=== PATIENT | female | born 1950 | race Hispanic/Latino ===

== ENCOUNTER → 2018-11-04 | Outpatient (CLI) | payer MEDICARE ==
[~2018-11-04] VITALS: Ht 157.5 cm; Wt 80.7 kg
[~2018-11-04] MED LIST: REGADENOSON 0.4 MG/5 ML PF SYG IVP SCH
== END | disposition home or self-care (01) ==
LOC: SHCH 08:07
PROVIDERS: ATTEND Internal Medicine Cardiovascular Disease
DX: I25.89 Other forms of chronic ischemic heart disease (principal); R07.9 Chest pain, unspecified; R06.09 Other forms of dyspnea
CPT/HCPCS: 78452; 93017; 96374; A9500 ×2; J2785

== ENCOUNTER 2020-12-27 06:02 | Day surgery (SDC) | payer MEDICARE ==
[2020-12-25 13:21] VITALS: BP 126/47
[2020-12-25 13:27] LABS: BASOPHILS % (AUTO) 0.8 % (0.0-5.0); EOSINOPHILS % (AUTO) 1.5 % (0.0-8.0); HEMATOCRIT 30.3 % (36-48); LYMPHOCYTES % (AUTO) 13.6 % (21.0-51.0); MEAN CORPUSCULAR HEMOGLOBIN 31.7 pg (27.0-33.0); MEAN CORPUSCULAR HGB CONC 32.3 g/dL (32.0-36.0); MEAN CORPUSCULAR VOLUME 98.1 fL (79-99); MONOCYTES % (AUTO) 8.2 % (3.0-13.0); NEUTROPHILS % (AUTO) 75.1 % (40.0-77.0); PLATELET COUNT (AUTO) 253 K/uL (130-400); RED BLOOD CELL COUNT(AUTO) 3.09 MIL/uL (4.00-5.50); RED CELL DISTRIBUTION WIDTH 15.3 % (11.0-15.5); WHITE BLOOD COUNT (AUTO) 8.5 K/uL (4.8-10.8)
[2020-12-25 13:39] LABS: INR 1.05 (0.85-1.15); PROTHROMBIN TIME 11.4 SEC (9.6-11.6)
[2020-12-25 13:40] LABS: PARTIAL THROMBOPLASTIN TIME 29.3 SEC (26.3-35.5)
[~2020-12-27] VITALS: Ht 157.5 cm; Wt 71.4 kg
[2020-12-27] VITALS (11 sets, daily range): BP systolic 129–166; BP diastolic 41–79
[~2020-12-27 06:02] MED LIST changes: +AMLO-258 PO; +ASPI-1443 PO; +ATOR10TA69 PO; +CALC667T8 PO; +CARV25TA PO; +CLOP75TA32 PO; +FOLI1TAB85 PO; +HYDR100T27 PO; +INSNOV SQ; +INSU100I24 SQ; +ISOS30TA92 PO; +LOSA100T58 PO; +PANT40TA54 PO; +RANO500T6 PO; -REGADENOSON 0.4 MG/5 ML PF SYG IVP SCH; +TRAZ-185 PO; +VITA400C79 PO; +VITAMIN D PO
[2020-12-27] MEDS ORDERED: 0.9%NACL 1000ML 1,000 ML IV ONE (06:13)
[2020-12-27 06:48] LABS: BASOPHILS % (AUTO) 0.8 % (0.0-5.0); EOSINOPHILS % (AUTO) 2.2 % (0.0-8.0); LYMPHOCYTES % (AUTO) 16.8 % (21.0-51.0); MEAN CORPUSCULAR HEMOGLOBIN 32.1 pg (27.0-33.0); MEAN CORPUSCULAR HGB CONC 32.8 g/dL (32.0-36.0); MONOCYTES % (AUTO) 9.5 % (3.0-13.0); NEUTROPHILS % (AUTO) 70.4 % (40.0-77.0); PLATELET COUNT (AUTO) 187 K/uL (130-400); RED BLOOD CELL COUNT(AUTO) 2.96 MIL/uL (4.00-5.50); RED CELL DISTRIBUTION WIDTH 15.1 % (11.0-15.5); WHITE BLOOD COUNT (AUTO) 6.4 K/uL (4.8-10.8)
[2020-12-27 07:15] LABS: INR 1.05 (0.85-1.15); PROTHROMBIN TIME 11.4 SEC (9.6-11.6)
[2020-12-27 07:16] LABS: PARTIAL THROMBOPLASTIN TIME 29.6 SEC (26.3-35.5)
[2020-12-27] MEDS ORDERED: IOHEXOL-350 50ML VIAL IV ONE (07:21)
[2020-12-27] MEDS ORDERED: NITROGLYCERIN 50MG VIAL IV ONE (07:21)
[2020-12-27] MEDS ORDERED: LIDOCAINE HCL 400MG/20ML VIAL ONE (07:21)
[2020-12-27] MEDS ORDERED: IOHEXOL 350 MG/ML 100ML INFUS..BTL IV ONE (07:21)
[2020-12-27] MEDS ORDERED: IOHEXOL-350 75 ML VIAL IV ONE (08:06)
[2020-12-27] MEDS ORDERED: LABETALOL 20MG VIAL IV ONE (08:22)
[2020-12-27] MEDS ORDERED: HYDRALAZINE 20MG/ML VIAL ONE (08:28)
[2020-12-27] MEDS ORDERED: METOPROLOL TARTRATE 1 MG/ML 5ML VIAL IV PRN (09:00)
[2020-12-27] MEDS ORDERED: HYDRALAZINE 20MG/ML VIAL IV PRN (09:00)
[2020-12-27] MEDS ORDERED: GLUCAGON 1MG KIT 1 MG ML IM PRN (09:00)
[2020-12-27] MEDS ORDERED: DEXTROSE 50%-WATER 50 ML DISP.SYRIN IV PRN (09:00)
[2020-12-27] MEDS ORDERED: TRAMADOL HCL 50 MG TABLET ONE (09:41)
[2020-12-27] MEDS ORDERED: INSULIN HUMULIN R 100 UNIT/ML 3ML SQ SCH (11:30)
== END 2020-12-27 14:05 | disposition home or self-care (01) ==
LOC: DAH 06:02
PROVIDERS: ATTEND Internal Medicine Cardiovascular Disease
DX: I25.119 Atherosclerotic heart disease of native coronary artery with unspecified angina pectoris (principal); I25.82 Chronic total occlusion of coronary artery; E11.22 Type 2 diabetes mellitus with diabetic chronic kidney disease; I13.2 Hypertensive heart and chronic kidney disease with heart failure and with stage 5 chronic kidney disease, or end stage renal disease; I50.32 Chronic diastolic (congestive) heart failure; N18.6 End stage renal disease; E11.51 Type 2 diabetes mellitus with diabetic peripheral angiopathy without gangrene; E78.5 Hyperlipidemia, unspecified; I25.2 Old myocardial infarction; D64.9 Anemia, unspecified; E66.9 Obesity, unspecified; Z79.01 Long term (current) use of anticoagulants; Z79.82 Long term (current) use of aspirin; Z99.2 Dependence on renal dialysis; Z79.4 Long term (current) use of insulin; Z79.899 Other long term (current) drug therapy; Z98.890 Other specified postprocedural states; Z90.49 Acquired absence of other specified parts of digestive tract; Z90.710 Acquired absence of both cervix and uterus; Z98.891 History of uterine scar from previous surgery; Z82.49 Family history of ischemic heart disease and other diseases of the circulatory system; Z83.3 Family history of diabetes mellitus; Z87.891 Personal history of nicotine dependence; Z68.27 Body mass index [BMI] 27.0-27.9, adult; Z79.02 Long term (current) use of antithrombotics/antiplatelets
CPT/HCPCS: 36415 ×2; 80048; 82948 ×2; 85025 ×2; 85610 ×2; 85730 ×2; 93459; A4215; A4216; A4221; A4222; A4223 ×3; A4606; A4663; C1760; C1894 ×2; J0360; J1644; J3490 ×3; J7030; Q9965; Q9967 ×2

== ENCOUNTER 2021-05-04 23:24 | Emergency (ER) | payer MEDICARE ==
[~2021-05-04] VITALS: Ht 157.5 cm; Wt 73.9 kg
[~2021-05-04 23:24] MED LIST changes: -ISOS30TA92 PO
[2021-05-05 00:44] LABS: BASOPHILS % (AUTO) 0.8 % (0.0-5.0); EOSINOPHILS % (AUTO) 2.2 % (0.0-8.0); HEMATOCRIT 39.5 % (36-48); MEAN CORPUSCULAR HEMOGLOBIN 32.7 pg (27.0-33.0); MEAN CORPUSCULAR HGB CONC 33.2 g/dL (32.0-36.0); MEAN CORPUSCULAR VOLUME 98.5 fL (79-99); MONOCYTES % (AUTO) 13.4 % (3.0-13.0); NEUTROPHILS % (AUTO) 64.2 % (40.0-77.0); PLATELET COUNT (AUTO) 193 K/uL (130-400); RED BLOOD CELL COUNT(AUTO) 4.01 MIL/uL (4.00-5.50); RED CELL DISTRIBUTION WIDTH 14.7 % (11.0-15.5); WHITE BLOOD COUNT (AUTO) 4.9 K/uL (4.8-10.8)
[2021-05-05 00:53] LABS: CREATININE 5.1 mg/dL (0.5-1.5); POTASSIUM 4.2 mmol/L (3.5-5.1)
[2021-05-05 00:58] LABS: ALBUMIN 3.8 g/dL (3.5-5.0); BILIRUBIN,TOTAL 0.5 mg/dL (0.2-1.0); TOTAL PROTEIN, SERUM 7.3 g/dL (6.0-8.3)
[2021-05-05] MEDS ORDERED: LIDOP TP (02:18)
[2021-05-05] MEDS ORDERED: CYCL-309 PO (02:18)
[2021-05-05 02:22] VITALS: BP 168/75
[2021-05-05] MEDS ORDERED: MORPHINE 2 MG SYG IVP ONE (02:30)
[2021-05-05] MEDS ORDERED: ONDANSETRON 4MG INJ IVP ONE (02:30)
== END 2021-05-05 02:46 | disposition home or self-care (01) ==
LOC: EDH 23:24
DX: S70.01XA Contusion of right hip, initial encounter (principal); S50.11XA Contusion of right forearm, initial encounter; E11.9 Type 2 diabetes mellitus without complications; E78.00 Pure hypercholesterolemia, unspecified; I10 Essential (primary) hypertension; Z79.899 Other long term (current) drug therapy; Z79.82 Long term (current) use of aspirin; Z79.4 Long term (current) use of insulin; W01.0XXA Fall on same level from slipping, tripping and stumbling without subsequent striking against object, initial encounter; Y93.01 Activity, walking, marching and hiking; Y92.89 Other specified places as the place of occurrence of the external cause; Y99.8 Other external cause status
CPT/HCPCS: 36415; 70450; 72125; 73090; 73502; 80053; 85025; 96374; 96375; 99285; J2405

== ENCOUNTER 2021-06-06 14:50 | Emergency (ER) | payer MEDICARE ==
[~2021-06-06] VITALS: Ht 157.5 cm; Wt 73.9 kg
[~2021-06-06 14:50] MED LIST changes: +CYCL-309 PO; +LIDOP TP
[2021-06-06 15:23] LABS: BASOPHILS % (AUTO) 0.7 % (0.0-5.0); EOSINOPHILS % (AUTO) 4.3 % (0.0-8.0); HEMATOCRIT 33.8 % (36-48); LYMPHOCYTES % (AUTO) 22.9 % (21.0-51.0); MEAN CORPUSCULAR HEMOGLOBIN 31.4 pg (27.0-33.0); MEAN CORPUSCULAR HGB CONC 34.3 g/dL (32.0-36.0); MEAN CORPUSCULAR VOLUME 91.6 fL (79-99); MONOCYTES % (AUTO) 9.3 % (3.0-13.0); NEUTROPHILS % (AUTO) 62.2 % (40.0-77.0); PLATELET COUNT (AUTO) 135 K/uL (130-400); RED BLOOD CELL COUNT(AUTO) 3.69 MIL/uL (4.00-5.50); RED CELL DISTRIBUTION WIDTH 13.3 % (11.0-15.5); WHITE BLOOD COUNT (AUTO) 5.4 K/uL (4.8-10.8)
[2021-06-06 15:32] LABS: CREATININE 4.4 mg/dL (0.5-1.5); POTASSIUM 4.8 mmol/L (3.5-5.1)
[2021-06-06 15:37] LABS: ALBUMIN 3.3 g/dL (3.5-5.0); BILIRUBIN,TOTAL 0.4 mg/dL (0.2-1.0); MAGNESIUM 2.4 mg/dL (1.80-2.40); TOTAL PROTEIN, SERUM 6.7 g/dL (6.0-8.3)
[2021-06-06 15:57] VITALS: BP 160/52
== END 2021-06-06 16:34 | disposition home or self-care (01) ==
LOC: EDH 14:50
DX: R20.2 Paresthesia of skin (principal); E03.9 Hypothyroidism, unspecified; E78.00 Pure hypercholesterolemia, unspecified; I10 Essential (primary) hypertension; E11.9 Type 2 diabetes mellitus without complications; Z79.4 Long term (current) use of insulin; Z79.82 Long term (current) use of aspirin; Z79.899 Other long term (current) drug therapy; Z90.49 Acquired absence of other specified parts of digestive tract
CPT/HCPCS: 36415; 80053; 82550; 83735; 84484; 85025; 93005

== ENCOUNTER 2021-08-31 18:27 | Observation (INO) | payer MEDICARE, OTHER ==
[~2021-08-31] VITALS: Ht 157.5 cm; Wt 65.1 kg
[2021-08-31 18:52] LABS: BASOPHILS % (AUTO) 0.6 % (0.0-5.0); EOSINOPHILS % (AUTO) 2.3 % (0.0-8.0); HEMATOCRIT 38.8 % (36-48); LYMPHOCYTES % (AUTO) 16.1 % (21.0-51.0); MONOCYTES % (AUTO) 9.7 % (3.0-13.0); NEUTROPHILS % (AUTO) 70.9 % (40.0-77.0); PLATELET COUNT (AUTO) 156 K/uL (130-400); RED CELL DISTRIBUTION WIDTH 13.3 % (11.0-15.5); WHITE BLOOD COUNT (AUTO) 5.3 K/uL (4.8-10.8)
[2021-08-31 19:00] LABS: INR 0.93 (0.85-1.15)
[2021-08-31 19:02] LABS: PARTIAL THROMBOPLASTIN TIME 27.3 SEC (26.3-35.5)
[2021-08-31] MEDS ORDERED: ASPIRIN 81MG CHEW TAB PO ONE (19:30)
[2021-08-31] MEDS ORDERED: NITROGLYCERIN 1GM OINT 1 INCH/1GM TD ONE (19:30)
[2021-08-31 19:53] LABS: ALBUMIN 3.5 g/dL (3.5-5.0); CREATININE 4.4 mg/dL (0.5-1.5); POTASSIUM 5.3 mmol/L (3.5-5.1); TOTAL PROTEIN, SERUM 7.1 g/dL (6.0-8.3)
[2021-08-31 20:05] LABS: B-TYPE NATRIURETIC PEPTIDE 633 pg/mL (0-100)
[2021-08-31] MEDS ORDERED: MORPHINE 2 MG SYG IVP ONE (20:30)
[2021-08-31] MEDS ORDERED: ONDANSETRON 4MG INJ IVP ONE (20:30)
[2021-08-31] MEDS ORDERED: ACETAMINOPHEN 650 MG SUPPOSITORY RC PRN (21:30)
[2021-08-31] MEDS ORDERED: HYDRALAZINE HCL 10 MG TABLET PO SCH (21:30)
[2021-08-31] MEDS ORDERED: PROMETHAZINE HCL 25 MG/ML 1ML AMPULE IM PRN (22:30)
[2021-08-31] MEDS ORDERED: LEVO25CA4 PO (22:48)
[2021-09-01] VITALS (7 sets, daily range): BP systolic 130–166; BP diastolic 50–81
[2021-09-01] MEDS ORDERED: PANTOPRAZOLE 40 MG/VIAL IVP ONE (02:30)
[2021-09-01] MEDS ORDERED: PHARMACY COMMUNICATION MISC SCH ×2 (02:30→03:30)
[2021-09-01] MEDS ORDERED: CALCIUM CARB 500MG CHEW TAB PO SCH ×2 (02:30→03:00)
[2021-09-01] MEDS ORDERED: CALCIUM CARB 500MG CHEW TAB ONE (02:43)
[2021-09-01] MEDS ORDERED: CALCIUM CARB 500MG CHEW TAB PO PRN (04:00)
[2021-09-01] MEDS ORDERED: TRAZODONE HCL 50 MG TAB PO STA (05:47)
[2021-09-01] MEDS: INSULIN HUMULIN R 100 UNIT/ML 3ML SQ SCH ×4 (06:00→21:00)
[2021-09-01 06:23] LABS: BASOPHILS % (AUTO) 0.4 % (0.0-5.0); EOSINOPHILS % (AUTO) 2.4 % (0.0-8.0); HEMATOCRIT 35.5 % (36-48); LYMPHOCYTES % (AUTO) 19.7 % (21.0-51.0); MEAN CORPUSCULAR HEMOGLOBIN 33.1 pg (27.0-33.0); MEAN CORPUSCULAR HGB CONC 34.1 g/dL (32.0-36.0); MONOCYTES % (AUTO) 11.2 % (3.0-13.0); NEUTROPHILS % (AUTO) 65.9 % (40.0-77.0); PLATELET COUNT (AUTO) 126 K/uL (130-400); RED BLOOD CELL COUNT(AUTO) 3.66 MIL/uL (4.00-5.50); RED CELL DISTRIBUTION WIDTH 13.2 % (11.0-15.5); WHITE BLOOD COUNT (AUTO) 5.5 K/uL (4.8-10.8)
[2021-09-01] MEDS ORDERED: LEVOTHYROXINE 50 MCG TABLET PO SCH (06:30)
[2021-09-01] MEDS: LEVOTHYROXINE 25 MCG TABLET PO SCH (06:51)
[2021-09-01 06:58] LABS: HEMOGLOBIN A1C 5.2 % (4.0-6.0)
[2021-09-01 07:02] LABS: CREATININE 4.9 mg/dL (0.5-1.5); MAGNESIUM 2.1 mg/dL (1.80-2.40); PHOSPHORUS 2.9 mg/dL (2.5-4.9); POTASSIUM 5.4 mmol/L (3.5-5.1); THYROID STIMULATING HORMONE 5.42 uIU/mL (0.36-3.74)
[2021-09-01] MEDS ORDERED: KAYEXALATE 15GM/60ML PO SCH (08:30)
[2021-09-01] MEDS: HEPARIN 5,000 UNIT VIAL SQ SCH ×2 (08:44→20:25)
[2021-09-01] MEDS: HYDRALAZINE 25MG TABLET PO SCH ×2 (08:45→20:24)
[2021-09-01] MEDS: CARVEDILOL 25 MG TABLET PO SCH ×2 (08:46→20:23)
[2021-09-01] MEDS: Vitamin B Complex/Vit C/Folic Acid PO SCH (08:46)
[2021-09-01] MEDS: LOSARTAN 100 MG TABLET PO SCH (08:47)
[2021-09-01] MEDS: ISOSORBIDE MONO 30MG SR TAB PO SCH (08:47)
[2021-09-01] MEDS: ACETAMINOPHEN 325 MG TAB PO PRN ×2 (08:47→18:00)
[2021-09-01] MEDS: ASPIRIN 81 MG EC TAB PO SCH (08:48)
[2021-09-01] MEDS: AMLODIPINE 5 MG TAB PO SCH (08:48)
[2021-09-01] MEDS: CLOPIDOGREL 75MG TAB PO SCH (08:48)
[2021-09-01] MEDS: FAMOTIDINE 20MG TAB PO SCH ×2 (08:48→20:20)
[2021-09-01] MEDS: CALCIUM AC 667MG CAP PO SCH ×3 (08:48→16:02)
[2021-09-01] MEDS: RANOLAZINE 500 MG TAB.SR.12H PO SCH ×2 (08:48→20:24)
[2021-09-01] MEDS: VITAMIN E 400 UNIT CAPSULE PO SCH (08:48)
[2021-09-01] MEDS ORDERED: ENOXAPARIN SODIUM 40 MG/0.4 ML SYRINGE SQ SCH (09:00)
[2021-09-01] MEDS: DOCUSATE SODIUM 100 MG CAP PO SCH (20:24)
[2021-09-01] MEDS ORDERED: TRAZODONE HCL 50 MG TAB PO SCH (21:00)
[2021-09-01] MEDS ORDERED: ATORVASTATIN 10 MG TABLET PO SCH (21:00)
[2021-09-02] VITALS (18 sets, daily range): BP systolic 122–167; BP diastolic 45–67
[2021-09-02 03:42] LABS: HEMATOCRIT 34.1 % (36-48); MEAN CORPUSCULAR HEMOGLOBIN 32.9 pg (27.0-33.0); MEAN CORPUSCULAR HGB CONC 33.7 g/dL (32.0-36.0); MEAN CORPUSCULAR VOLUME 97.4 fL (79-99); RED BLOOD CELL COUNT(AUTO) 3.5 MIL/uL (4.00-5.50); RED CELL DISTRIBUTION WIDTH 13.2 % (11.0-15.5); WHITE BLOOD COUNT (AUTO) 5.5 K/uL (4.8-10.8)
[2021-09-02 03:58] LABS: CREATININE 5.9 mg/dL (0.5-1.5); POTASSIUM 5.6 mmol/L (3.5-5.1)
[2021-09-02] MEDS: LEVOTHYROXINE 25 MCG TABLET PO SCH (05:31)
[2021-09-02] MEDS: INSULIN HUMULIN R 100 UNIT/ML 3ML SQ SCH ×2 (05:34→11:30)
[2021-09-02] MEDS ORDERED: KAYEXALATE 15GM/60ML PO SCH (08:00)
[2021-09-02] MEDS: VITAMIN E 400 UNIT CAPSULE PO SCH (08:13)
[2021-09-02] MEDS: ASPIRIN 81 MG EC TAB PO SCH (08:13)
[2021-09-02] MEDS: FAMOTIDINE 20MG TAB PO SCH (08:13)
[2021-09-02] MEDS: Vitamin B Complex/Vit C/Folic Acid PO SCH (08:13)
[2021-09-02] MEDS: DOCUSATE SODIUM 100 MG CAP PO SCH (08:13)
[2021-09-02] MEDS: AMLODIPINE 5 MG TAB PO SCH (08:13)
[2021-09-02] MEDS: HYDRALAZINE 25MG TABLET PO SCH (08:14)
[2021-09-02] MEDS: CARVEDILOL 25 MG TABLET PO SCH (08:14)
[2021-09-02] MEDS: RANOLAZINE 500 MG TAB.SR.12H PO SCH (08:14)
[2021-09-02] MEDS: LOSARTAN 100 MG TABLET PO SCH (08:15)
[2021-09-02] MEDS: CALCIUM AC 667MG CAP PO SCH ×2 (08:15→11:59)
[2021-09-02] MEDS: HEPARIN 5,000 UNIT VIAL SQ SCH (08:15)
[2021-09-02] MEDS: CLOPIDOGREL 75MG TAB PO SCH (08:16)
[2021-09-02] MEDS: ISOSORBIDE MONO 30MG SR TAB PO SCH (08:16)
[2021-09-02] MEDS ORDERED: LEVO25CA4 PO (14:44)
[2021-09-02] MEDS ORDERED: NITR0.4T50 SL (14:44)
[2021-09-02 16:45] LABS: HEPATITIS B SURFACE ANTIGEN Non-Reactive (Nonreactive)
== END 2021-09-02 15:00 | disposition home or self-care (01) ==
LOC: EDH 18:27 → EDHIP 21:04 → 2DH 09-01 01:46 → UNDODISOB 09-01 11:43
PROVIDERS: ADMIT Internal Medicine Critical Care Medicine; ATTEND Internal Medicine Critical Care Medicine
DX: I25.110 Atherosclerotic heart disease of native coronary artery with unstable angina pectoris (principal); R07.89 Other chest pain; K21.9 Gastro-esophageal reflux disease without esophagitis; I12.0 Hypertensive chronic kidney disease with stage 5 chronic kidney disease or end stage renal disease; E11.22 Type 2 diabetes mellitus with diabetic chronic kidney disease; N18.6 End stage renal disease; E11.36 Type 2 diabetes mellitus with diabetic cataract; E03.9 Hypothyroidism, unspecified; E78.00 Pure hypercholesterolemia, unspecified; F41.8 Other specified anxiety disorders; E66.3 Overweight; E87.5 Hyperkalemia; K59.00 Constipation, unspecified; Z87.11 Personal history of peptic ulcer disease; Z95.1 Presence of aortocoronary bypass graft; Z99.2 Dependence on renal dialysis; Z79.899 Other long term (current) drug therapy
CPT/HCPCS: 96374; 96375 ×2; 99285; 82550; 84484 ×2; 80053; 83880; 83690; 85025 ×2; 85610; 85730; 36415 ×3; 71045; 93005 ×2; 96372 ×2; 83036; 84443; 83735; 84100; 80048 ×2; 85378; 82948 ×6; 93356; 85027; 86706; 87340; 86704; G0378 ×39; J2405; J1815; J2550; J1644 ×3; C9113; C8929; 90935; 93306; J1650

== ENCOUNTER 2021-11-17 09:46 | Emergency (ER) | payer OTHER, MEDICARE ==
[~2021-11-17] VITALS: Ht 160 cm; Wt 63.5 kg
[~2021-11-17 09:46] MED LIST changes: +LEVO25CA4 PO; +NITR0.4T50 SL
[2021-11-17] MEDS ORDERED: ACETAMINOPHEN 500 MG TABLET PO ONE (11:00)
[2021-11-17] MEDS ORDERED: ACETAMINOPHEN WITH CODEINE 1 TAB TAB PO ONE (12:30)
[2021-11-17] MEDS ORDERED: TRAMADOL HCL 50 MG TABLET PO ONE (12:30)
[2021-11-17 12:33] VITALS: BP 160/61
[2021-11-17] MEDS ORDERED: TRAM1TAB2 PO (13:09)
== END 2021-11-17 13:29 | disposition home or self-care (01) ==
LOC: EDH 09:46
DX: S80.211A Abrasion, right knee, initial encounter (principal); S50.811A Abrasion of right forearm, initial encounter; I12.0 Hypertensive chronic kidney disease with stage 5 chronic kidney disease or end stage renal disease; E11.22 Type 2 diabetes mellitus with diabetic chronic kidney disease; E78.00 Pure hypercholesterolemia, unspecified; Z79.02 Long term (current) use of antithrombotics/antiplatelets; Z79.4 Long term (current) use of insulin; Z79.82 Long term (current) use of aspirin; Z79.899 Other long term (current) drug therapy; Z90.49 Acquired absence of other specified parts of digestive tract; Z95.1 Presence of aortocoronary bypass graft; Z99.2 Dependence on renal dialysis; W18.39XA Other fall on same level, initial encounter; Y93.89 Activity, other specified; Y92.89 Other specified places as the place of occurrence of the external cause; Y99.8 Other external cause status
CPT/HCPCS: 70450; 72100; 72170; 73090; 73562; 93005

== ENCOUNTER 2021-11-25 06:07 | Emergency (ER) | payer OTHER, MEDICARE ==
[~2021-11-25] VITALS: Ht 157.5 cm; Wt 68.0 kg
[~2021-11-25 06:07] MED LIST changes: +TRAM1TAB2 PO
[2021-11-25 06:53] LABS: BASOPHILS % (AUTO) 0.4 % (0.0-5.0); EOSINOPHILS % (AUTO) 1.1 % (0.0-8.0); HEMATOCRIT 37.9 % (36-48); LYMPHOCYTES % (AUTO) 14.5 % (21.0-51.0); MEAN CORPUSCULAR HEMOGLOBIN 31.5 pg (27.0-33.0); MEAN CORPUSCULAR HGB CONC 33.2 g/dL (32.0-36.0); MEAN CORPUSCULAR VOLUME 94.8 fL (79-99); MONOCYTES % (AUTO) 8.1 % (3.0-13.0); NEUTROPHILS % (AUTO) 75.2 % (40.0-77.0); PLATELET COUNT (AUTO) 186 K/uL (130-400); RED CELL DISTRIBUTION WIDTH 15.1 % (11.0-15.5); WHITE BLOOD COUNT (AUTO) 5.6 K/uL (4.8-10.8)
[2021-11-25 07:07] LABS: ALBUMIN 2.9 g/dL (3.5-5.0); CREATININE 5.3 mg/dL (0.5-1.5); MAGNESIUM 1.8 mg/dL (1.80-2.40); POTASSIUM 5.8 mmol/L (3.5-5.1); TOTAL PROTEIN, SERUM 6.6 g/dL (6.0-8.3)
[2021-11-25 09:52] VITALS: BP 165/81
== END 2021-11-25 09:53 | disposition home or self-care (01) ==
LOC: EDH 06:07
DX: R20.2 Paresthesia of skin (principal); E87.70 Fluid overload, unspecified; I12.0 Hypertensive chronic kidney disease with stage 5 chronic kidney disease or end stage renal disease; E11.22 Type 2 diabetes mellitus with diabetic chronic kidney disease; N18.6 End stage renal disease; Z99.2 Dependence on renal dialysis; E78.00 Pure hypercholesterolemia, unspecified; Z90.89 Acquired absence of other organs; Z90.49 Acquired absence of other specified parts of digestive tract; Z98.890 Other specified postprocedural states; Z79.899 Other long term (current) drug therapy; Z79.82 Long term (current) use of aspirin; Z79.4 Long term (current) use of insulin; W18.30XA Fall on same level, unspecified, initial encounter; Y93.89 Activity, other specified; Y92.89 Other specified places as the place of occurrence of the external cause; Y99.8 Other external cause status
CPT/HCPCS: 36415; 71045; 80053; 83735; 83880; 84484; 85025; 93005

== ENCOUNTER → 2022-04-25 | Outpatient (CLI) | payer OTHER, MEDICARE | END | disposition home or self-care (01) | LOC: RAH 12:47 | PROVIDERS: ATTEND Nurse Practitioner Family | DX: N63.20 Unspecified lump in the left breast, unspecified quadrant (principal); N63.10 Unspecified lump in the right breast, unspecified quadrant; Q83.1 Accessory breast | CPT/HCPCS: 77066 ==